=== PATIENT | male | born 1955 | race Caucasian/White ===

== ENCOUNTER 2022-04-26 07:37 | Outpatient (RCR) | payer MEDICARE, BC, SELFPAY ==
[2021-12-12] MEDS: 0.9 % SODIUM CHLORIDE 1000 ml 1,000 ML 500 ML IV (13:00)
[2021-12-12 13:48] VITALS: BP 118/75; PULSE 99; RESP 16; TEMP 35.8; O2SAT 96
[2021-12-13 11:05] VITALS: BP 113/73; PULSE 90; RESP 16; TEMP 36.2; O2SAT 93
[2021-12-13] MEDS: 0.9 % SODIUM CHLORIDE 1000 ml 1,000 ML 500 ML IV (11:34)
[2021-12-14 10:15] VITALS: BP 110/75; PULSE 82; RESP 16; TEMP 36; O2SAT 96
[2021-12-14] MEDS: 0.9 % SODIUM CHLORIDE 1000 ml 1,000 ML 500 ML IV (10:18)
[2021-12-18 11:02] VITALS: BP 105/72; PULSE 99; RESP 16; TEMP 36.4; O2SAT 94
[2021-12-18] MEDS: 0.9 % SODIUM CHLORIDE 1000 ml 1,000 ML IV (11:48)
[2021-12-18] MEDS: SODIUM CHLORIDE 0.9 % (FLUSH) 10 ML SYRINGE IVF (11:48)
[2021-12-20 10:43] VITALS: BP 96/68; PULSE 109; RESP 16; TEMP 36.4; O2SAT 94
[2021-12-20] MEDS: 0.9 % SODIUM CHLORIDE 1000 ml 1,000 ML IV (11:22)
[2021-12-20 12:25] VITALS: BP 128/78; PULSE 89; RESP 18; TEMP 36.7; O2SAT 98
[2021-12-22] MEDS: 0.9 % SODIUM CHLORIDE 1000 ml 1,000 ML IV (11:28)
[2021-12-22] MEDS: SODIUM CHLORIDE 0.9 % (FLUSH) 10 ML SYRINGE IVF (11:28)
[2021-12-22 12:00] VITALS: BP 101/70; PULSE 95; RESP 16; TEMP 36.8; O2SAT 95
[2021-12-24 12:00] VITALS: BP 107/67; PULSE 104; RESP 18; TEMP 36.6; O2SAT 97
[2021-12-24 13:10] VITALS: BP 129/81; PULSE 86; RESP 18; TEMP 36.8; O2SAT 98
--- NOTE | 2021-12-24 13:38 | PC.NURSE ---
shift note: pt to rm 258 for 1 L ns over an hour per d.o. IV placed in Lt FA #22. 4 attempts. Pt tolerated infusion well. IV dc'd intact and coban applied to assist with clotting site. Pt denies pain at dc. vss stable
[2021-12-29 15:25] VITALS: BP 114/71; PULSE 112; RESP 20; TEMP 35.8; O2SAT 96
[2021-12-29] MEDS: 0.9 % SODIUM CHLORIDE 1000 ml 1,000 ML IV (15:30)
[2021-12-29] MEDS: SODIUM CHLORIDE 0.9 % (FLUSH) 10 ML SYRINGE IVF (16:11)
[2022-01-01] VITALS (12 sets, daily range): BP systolic 74–121; BP diastolic 50–77; PULSE 83–111; RESP 16–20; TEMP 36.9; O2SAT 92–98
--- NOTE | 2022-01-01 16:10 | ONC.NURNOTE ---
SEE frequent vitals. Net Applications Developer placed IV without difficult at 1124. 2 minutes later, pt c/o lightheadedness, pt diaphoretic. BP 70's systollic. Pt placed supine, IV bolus started, Christin Woodson APRN notified and at bedside. Pt did get nauseated and vomited approx 200cc. Pt felt better after having an emesis. Within minutes BP improved, see Vitals. Pt given a total of 2 L NC, ambulated in hallway without difficulty and discharged to home. IV left in place for IVF tomorrow am.
[2022-01-02 08:51] VITALS: BP 115/76; PULSE 105; RESP 16; TEMP 35.9; O2SAT 94
[2022-01-02 08:52] VITALS: BP 113/77; PULSE 101
[2022-01-02 08:53] VITALS: BP 133/66; PULSE 112
[2022-01-02] MEDS: 0.9 % SODIUM CHLORIDE 1000 ml 1,000 ML IV (08:55)
--- NOTE | 2022-01-03 16:30 | ONC.NURNOTE ---
Patient called about orders for IV fluids. No orders were sent to us. Patient stated they were supposed to come from [facility] in [place]. Evidence Custodian called the clinic and they stated that the orders were sent to [facility] instead of here. Requested that orders be faxed to us and also emailed to STEFANI Waller. Patient scheduled for 01-04-22. Per trina, Dr. Nicholas's team will be reaching out to him to set up a neurology consult to address the orthostasis he is experiencing. Patient called with this plan and will plan to be here tomorrow and will wait to hear from [place] on a neurology consult.
[2022-01-04 13:01] VITALS: BP 136/78; PULSE 98; RESP 16; TEMP 35.9; O2SAT 97
[2022-01-04] MEDS: 0.9 % SODIUM CHLORIDE 1000 ml 1,000 ML IV (13:11)
[2022-01-04] MEDS: SODIUM CHLORIDE 0.9 % (FLUSH) 10 ML SYRINGE IVF (14:34)
[2022-01-05 09:36] VITALS: BP 125/76; PULSE 109; RESP 16; TEMP 36.2; O2SAT 95
[2022-01-05] MEDS: 0.9 % SODIUM CHLORIDE 1000 ml 1,000 ML 800 ML IV (09:46)
[2022-01-05 11:03] VITALS: BP 121/82; BP 136/84; PULSE 92
--- NOTE | 2022-03-30 15:48 | URNOTE ---
Request received for authorization for Leuprolide ([id number]). Prior authorization is not required as services are based on medical necessity and follow Medicare guidelines.
--- NOTE | 2022-04-02 08:22 | ONC.NURNOTE ---
Dx: Prostate cancer
[2022-04-03 14:50] VITALS: BP 145/82; PULSE 68; RESP 16; TEMP 36.2; O2SAT 95
[2022-04-03] MEDS: LEUPROLIDE ACETATE 22.5 MG (SQ) SYRINGE SUBCUT (15:04)
[2022-04-26 10:39] LABS: Eosinophils Percent Auto 3.5 % (0.0-7.0); Hematocrit 39.8 % (37.0-53.0); Hemoglobin* 13.3 gm/dL (13.5-17.5); Immature Granulocytes Pct Auto 0.3 %; Lymphocytes Percent Auto 14.5 % (20-44); Mean Corpuscular HGB Conc 33 gm/dL (32-36); Mean Corpuscular Hemoglobin 35 pg (26-34); Mean Corpuscular Volume 104 fL (80-100); Monocytes Percent Auto 19.5 % (0.0-11.0); Neutrophils Percent Auto 62.2 % (42.0-72.0); Platelet Count* 65 K/uL (140-440); RDW Coefficient of Variation % 13.6 % (11.5-15.5); Red Blood Count 3.82 m/uL (4.30-5.90); White Blood Count* 3.44 K/uL (4.50-11.00)
[2022-04-26 10:54] LABS: Slide Review Reflex No
[2022-04-26 10:55] LABS: INR 2.25 (0.91-1.10)
[2022-04-26 11:13] LABS: Albumin* 4.4 g/dL (3.3-5.0); Chloride* 109 mmol/L (96-114); Potassium* 4.5 mmol/L (3.6-5.1); Sodium* 144 mmol/L (135-149)
[2022-04-26 11:15] LABS: Bilirubin Total* 0.7 mg/dL (0.1-1.5); Creatinine* 1.1 mg/dL (0.5-1.5); Estimated Glomerular Filt Rate 74 ml/min
[2022-04-26 11:16] LABS: Alanine Aminotransferase* 20 U/L (4-50); Alkaline Phosphatase* 57 U/L (40-150); Blood Urea Nitrogen* 20 mg/dL (7-30); Calcium* 9.7 mg/dL (8.4-10.6); Carbon Dioxide* 24 mmol/L (20-32); Glucose* 109 mg/dL (60-115); Total Protein* 6.9 g/dL (6.0-8.3)
[2022-04-26 11:32] LABS: Aspartate Amino Transferase* 29 U/L (12-35)
[2022-04-26 11:47] LABS: PSA Diagnostic* 1.01 ng/mL (0.10-4.00)
--- NOTE | 2022-04-27 09:46 | ONC.NURNOTE ---
INR drawn yesterday per patient request results faxed to [facility] in [place]
--- NOTE | 2022-04-30 09:17 | ONC.NURNOTE ---
Addendum entered by Bryanna Gonzales RN 05/10/22 15:14: Rug Underlay Machine Operator spoke with patient and reviewed need to connect with [facility] for enrollment in a copay assist for high monthly copay discussed plan to do teaching and lab recheck when he returns from [place] next week Addendum entered by Braynna Gonzales RN 05/10/22 14:53: [facility] up with [facility] patient to review options for copay enrollment grants digital message sent via Voxel address Addendum entered by Bryanna Gonzales RN 05/03/22 13:29: PA info unavailable Copay [id number] [facility] to look into copay assist and will be contacting patient Updated this office contact info with [facility] program writer will call and update patient Addendum entered by Bryanna Gonzales RN 05/03/22 13:22: Phone call to [facility]- RX has been transferred to [facility]- Grace contacted Dr Lopez to complete the transaction Original Note: Xtandi new RX electronically submitted to [facility] 04/25/22 program writer phoned in follow up today RX in process with business office- PA status unknown at this time patient received written info and instruction about copay's and copay support, free drug program
--- NOTE | 2022-05-01 09:57 | ONC.NURNOTE ---
Follow up call to Darío: [place] still processing script- no info yet on PA or copay amounts Revisited plan to enroll in [employer] Patient Assist if high dollar copay. patient has the forms to complete and was instructed to scan and email to this com writer. Will need to recheck platelets prior to Xtandi start- labs reviewed by Dr Lopez patient states that his platelets have been running low since he received the Counce 223 next appts needed -recheck lab -monthly lab -provider appts -teaching appt (to do with next lab draw) patient in [facility] until after the new year
--- NOTE | 2022-05-16 11:00 | ONC.NURNOTE ---
PA info for Xtandi 05/13/22-05/12/23 [facility] [phone] PA # [id number]
--- NOTE | 2022-05-16 11:03 | ONC.NURNOTE ---
Addendum entered by Bryanna Gonzales RN 05/16/22 11:44: Current status of copay: since there is no keila programs for prostate cancer The pharmacy at [facility] has referred Darío to the [facility] at [facility] Darío has requested a referral at [facility] as well Next Steps: (per [facility] agent) -RCC with contact patient with in 72 hours to do a prescreening asking for his income -if it looks like he will qualify for [facility] financial hardship program then Darío will complete an application and will need to provide income documentation -another 72 hrs to process application If Darío does not qualify for [facility] financial hardship program then an application for [employer] will submitted Patient was offered a teaching appt, but he prefers to wait until after Xtandi is ready to be shipped Darío also has seen Dr Nicholas about hip and back pain and is to be scheduled for upcoming MRI at [place] for evaluation Original Note: No available funds for prostate cancer through keila based funds
--- NOTE | 2022-06-01 15:47 | ONC.NURNOTE ---
Per [facility] has mailed Darío a one page financial form to complete for consideration of enrollment in [facility]'s financial hardship program to cover high copays mailed on 05/17/22 to patient Building Services Engineer also spoke with Darío and he has not received this form [facility] phone# provided for Darío to call for RCC and see if he can provide information over the phone plan to reconnect again next week
== END 2022-06-10 23:59 | disposition home or self-care (01) ==
LOC: CCIC 07:37
PROVIDERS: PCP Physician Assistant; Referring Provider Physician Assistant; Visit Provider Internal Medicine Medical Oncology
DX: C61 Malignant neoplasm of prostate (principal); C79.51 Secondary malignant neoplasm of bone; Z79.01 Long term (current) use of anticoagulants
CPT/HCPCS: 36415; 80053; 84153; 85025; 85610; 96360; 96361; 96365; 96401; 99204; 99212; 99214; J7030; J9217

== ENCOUNTER 2022-12-19 08:30 | Outpatient (RCR) | payer MEDICARE, BC, SELFPAY ==
[2022-06-27 10:40] VITALS: BP 143/89; PULSE 100; RESP 16; TEMP 36.2; O2SAT 93
[2022-06-27] MEDS: LEUPROLIDE ACETATE 22.5 MG (SQ) SYRINGE SUBCUT (10:51)
[2022-08-20 09:05] LABS: Basophils Percent Auto 0.5 % (0.0-3.0); Eosinophils Percent Auto 3.7 % (0.0-7.0); Hematocrit 40.4 % (37.0-53.0); Hemoglobin* 13.5 gm/dL (13.5-17.5); Immature Granulocytes Pct Auto 0.2 %; Mean Corpuscular HGB Conc 33 gm/dL (32-36); Mean Corpuscular Hemoglobin 35 pg (26-34); Mean Corpuscular Volume 104 fL (80-100); Monocytes Percent Auto 14.4 % (0.0-11.0); Neutrophils Percent Auto 56.2 % (42.0-72.0); Platelet Count* 112 K/uL (140-440); RDW Coefficient of Variation % 13.8 % (11.5-15.5); Red Blood Count 3.87 m/uL (4.30-5.90); White Blood Count* 4.32 K/uL (4.50-11.00)
[2022-08-20 09:06] LABS: Slide Review Reflex No
[2022-08-20 09:17] LABS: Albumin* 4.4 g/dL (3.3-5.0); Chloride* 108 mmol/L (96-114)
[2022-08-20 09:18] LABS: Potassium* 3.2 mmol/L (3.6-5.1); Sodium* 141 mmol/L (135-149)
[2022-08-20 09:20] LABS: Alanine Aminotransferase* 22 U/L (4-50); Alkaline Phosphatase* 84 U/L (40-150); Aspartate Amino Transferase* 30 U/L (12-35); Bilirubin Total* 0.9 mg/dL (0.1-1.5); Blood Urea Nitrogen* 14 mg/dL (7-30); Carbon Dioxide* 29 mmol/L (20-32); Creatinine* 0.8 mg/dL (0.5-1.5); Est. Creatinine Clearance* 79.76; Estimated Glomerular Filt Rate 98 ml/min; Glucose* 111 mg/dL (60-115); Total Protein* 7.4 g/dL (6.0-8.3)
[2022-08-20 09:21] LABS: Calcium* 9.2 mg/dL (8.4-10.6)
[2022-08-20 09:55] LABS: PSA Diagnostic* 4.07 ng/mL (0.10-4.00)
--- NOTE | 2022-08-30 10:49 | ONC.NURNOTE ---
Addendum entered by Bryanna Gonzales RN 09/06/22 14:34: [facility] missing 2nd page of 1040- refaxed in today poem writer called and confirmed that it was received decision should be made by Saturday for enrollment Addendum entered by Bryanna Gonzales RN 09/03/22 09:14: Faxed 1040 and signed statement of household size to [facility] Original Note: Application for [facility] submitted on 08/29/22 - a 2nd time fax
--- NOTE | 2022-09-10 14:02 | ONC.NURNOTE ---
Xtandi prescription cost coverage Per [employer], Darío will need additional financial evaluation for Medicare's Low Income Subsidy/Medicare Extra Help program services assistant called and Darío was informed of this and that [employer] will be calling to get additional information enrollment pending on if Darío qualifies for Medicare LIS then he will need to enroll in the LIS program and will get his medication for under $10 through the Medicare LIS and not through [employer] if he does not qualify for LIS then he will be enrolled in the [employer]
--- NOTE | 2022-09-18 14:42 | ONC.NURNOTE ---
Darío has been enrolled in [employer] with RX to be filled through [facility] this was emailed to Darío per his request [employer] ph [phone] fax [phone] [facility] ph [phone]
[2022-09-21] MEDS: LEUPROLIDE ACETATE 22.5 MG (SQ) SYRINGE SUBCUT (14:32)
[2022-09-21 15:53] VITALS: BP 128/83; PULSE 98; RESP 18; TEMP 36.3; O2SAT 94
[2022-10-17 14:31] LABS: Basophils Absolute Auto 0.01 K/uL (0.00-0.30); Basophils Percent Auto 0.2 % (0.0-3.0); Eosinophils Absolute Auto 0.12 K/uL (0.00-0.50); Eosinophils Percent Auto 2.2 % (0.0-7.0); Hematocrit 43.7 % (37.0-53.0); Hemoglobin* 14.6 gm/dL (13.5-17.5); Immature Granulocytes Abs Auto 0.01 K/uL (0.00-0.30); Immature Granulocytes Pct Auto 0.2 %; Lymphocytes Absolute Auto 1.56 K/uL (0.90-2.90); Lymphocytes Percent Auto 28.1 % (20-44); Mean Corpuscular HGB Conc 33 gm/dL (32-36); Mean Corpuscular Hemoglobin 35 pg (26-34); Mean Corpuscular Volume 105 fL (80-100); Monocytes Percent Auto 14.2 % (0.0-11.0); Neutrophils Absolute Auto 3.06 K/uL (1.7-7.0); Neutrophils Percent Auto 55.1 % (42.0-72.0); Platelet Count* 146 K/uL (140-440); Red Blood Count 4.15 m/uL (4.30-5.90); Slide Review Reflex No; White Blood Count* 5.55 K/uL (4.50-11.00)
[2022-10-17 14:56] LABS: Blood Urea Nitrogen* 14 mg/dL (7-30); Calcium* 9.6 mg/dL (8.4-10.6); Carbon Dioxide* 18 mmol/L (20-32); Chloride* 106 mmol/L (96-114); Creatinine* 0.9 mg/dL (0.5-1.5); Est. Creatinine Clearance* 79.76; Estimated Glomerular Filt Rate 94 ml/min; Glucose* 89 mg/dL (60-115); Potassium* 4.2 mmol/L (3.6-5.1); Sodium* 144 mmol/L (135-149); Total Protein* 7.8 g/dL (6.0-8.3)
[2022-10-17 14:57] LABS: Alanine Aminotransferase* 21 U/L (4-50); Albumin* 4.5 g/dL (3.3-5.0); Alkaline Phosphatase* 71 U/L (40-150); Aspartate Amino Transferase* 30 U/L (12-35); Bilirubin Total* 0.9 mg/dL (0.1-1.5)
[2022-10-17 17:24] LABS: PSA Diagnostic* 4.32 ng/mL (0.10-4.00)
--- NOTE | 2022-10-19 11:18 | ONC.NURNOTE ---
Addendum entered by Bryanna Gonzales RN 10/22/22 13:04: dose and PSA reviewed by Dr Poe- no dose change indicated at this time to continue 80 mg QD until follow up appt in 2 weeks Original Note: Lab reviewed and called to Darío reports ongoing fatigue and taking pain medication as prescribed dose discussed- patient is taking 2 X 40mg tabs which Dr Poe had started at reduced dose due to baseline fatigue
[2022-11-15] MEDS: 0.9 % SODIUM CHLORIDE 1000 ml 1,000 ML IV (14:15)
--- NOTE | 2022-11-26 14:50 | URNOTE ---
Request received for authorization for Eligard ([id number]), Docetaxel (J9171). Prior authorization is not required as services are based on medical necessity and follow Medicare guidelines.
--- NOTE | 2022-11-26 15:38 | ONC.NURNOTE ---
Patient's PA came back to cover the taxotere. Patient is not scheduled, so he was called and he states that he does want chemotherapy. He questions how he is to stop his xtandi with a start date of 12/06/2022 of the taxotere. This will be following an appointment that was scheduled with Dr. Poe. Clinic nurse to discuss with Dr. Poe tomorrow, and have Bryanna call patient back with instruction and scheduling of teaching.
[2022-12-04 09:29] LABS: Basophils Percent Auto 0.3 % (0.0-3.0); Eosinophils Percent Auto 3.9 % (0.0-7.0); Hemoglobin* 13.5 gm/dL (13.5-17.5); Immature Granulocytes Pct Auto 0.3 %; Mean Corpuscular HGB Conc 33 gm/dL (32-36); Mean Corpuscular Hemoglobin 35 pg (26-34); Mean Corpuscular Volume 107 fL (80-100); Monocytes Percent Auto 13.7 % (0.0-11.0); Neutrophils Percent Auto 46.8 % (42.0-72.0); Platelet Count* 133 K/uL (140-440); RDW Coefficient of Variation % 13.4 % (11.5-15.5); Red Blood Count 3.85 m/uL (4.30-5.90); White Blood Count* 3.57 K/uL (4.50-11.00)
[2022-12-04 09:30] LABS: Slide Review Reflex No
[2022-12-04 09:38] LABS: Albumin* 4.1 g/dL (3.3-5.0); Chloride* 105 mmol/L (96-114); Sodium* 143 mmol/L (135-149)
[2022-12-04 09:40] LABS: Est. Creatinine Clearance* 72.66; Estimated Glomerular Filt Rate 83 ml/min
[2022-12-04 09:41] LABS: Alanine Aminotransferase* 25 U/L (4-50); Alkaline Phosphatase* 68 U/L (40-150); Aspartate Amino Transferase* 38 U/L (12-35); Bilirubin Total* 1.1 mg/dL (0.1-1.5); Blood Urea Nitrogen* 13 mg/dL (7-30); Calcium* 9.4 mg/dL (8.4-10.6); Carbon Dioxide* 29 mmol/L (20-32); Glucose* 161 mg/dL (60-115); Total Protein* 7.2 g/dL (6.0-8.3)
[2022-12-04] MEDS: LORazepam 2 MG/ML inj 1 MG IVP (11:01)
[2022-12-04] MEDS: dexAMETHasone 10 MG in 0.9 % SODIUM CHLORIDE 100 ml 100 ML 404 MG IVPB (11:26)
[2022-12-04] MEDS: ONDANSETRON 2 MG/ML inj 8 MG IVP (11:26)
--- NOTE | 2022-12-04 14:28 | ONC.NURNOTE ---
New Treatment start teaching Reviewed possible side effects of taxotere, self care at home, calling with concerns, ER if fever over 100.5, self care at home, discussed treatment schedule, next appts infusion nurse to review home antiemetics reviewed contents of the new treatment binder questions addressed consents and CHRISTINE signed
--- NOTE | 2022-12-04 14:39 | ONC.NURNOTE ---
PSDS = 1 with no listed problems patient showed signs of anxiety upon arrival to clinic today, he was pacing and verbally expressed anxiety about diagnosis and chemotherapy start after provider visit today, he was given lorazepam IV in addition to antiemetics pre chemotherapy patient reports significant improved mood after lorazepam and completed PSDS senior writer offered SS visit as support for the patient-
--- NOTE | 2022-12-06 16:02 | PC.NURSE ---
Called pt today to check in after his first Taxotere chemotherapy on Saturday. Darío states that he is tired but overall doing well. He has no questions or concerns.
--- NOTE | 2022-12-07 09:33 | ONC.NURNOTE ---
Addendum entered and electronically signed by Christin Ennis APRN 12/17/22 21:05: Sent additional triage information to [facility] for outpatient palliative care [facility]CR. Addendum entered by Grisel Yu RN 12/12/22 15:08: Pt's Barbara called stating they had not heard from Palliative care yet. Hr Administrative Assistant did call and spoke to [facility] in [place]. Palliative care referral is currently in the triage status. Updated pt. Original Note: Patient's called office stating that palliative care consult was discussed at Saturday's appointment. Looking into the [facility] system, nothing was found. Hr Administrative Assistant emailed provider asking her to put consult in, patient notified. They will contact us mid next week if they still have not heard from [facility] scheduling.
--- NOTE | 2022-12-14 10:31 | PC.NURSE ---
Late entry: Pt's , Barbara, called [facility] this morning around 0830 to report that Darío had developed a significant rash. RN instructed Barbara to take Darío to his PCP or Urgent Care to be evaluated as no providers are present at [facility] today. Barbara verbalized understanding.
--- NOTE | 2022-12-17 12:20 | PC.NURSE ---
Boarder Machine called patient on 12/17 at 1130 to follow up regarding reported rash/adverse reaction from Taxotere. Boarder Machine spoke with both patient and spouse, Barbara. Pt verbalized he was seen at [facility] for rash and was given Triamciolone cream 0.5% (8 tubes) and then instructed to take Benadryl which he is reportedly taking 2-3x/day. Rash is reported to be on bilateral legs and arms primarily with some on back and torso. Rash is reported to appear the same however symptoms are improving. Christin updated on phone call. Pt is to be seen in infusion center on 12/19 and Rash will be assessed then.
[2022-12-19 08:40] VITALS: BP 111/83; PULSE 89; RESP 16; TEMP 35.7; O2SAT 90
[2022-12-19 08:45] VITALS: RESP 14; O2SAT 94
[2022-12-19] MEDS: LEUPROLIDE ACETATE 22.5 MG (SQ) SYRINGE SUBCUT (09:29)
[2022-12-19 09:30] VITALS: BMI 31.7
--- NOTE | 2022-12-19 09:57 | ONC.NURNOTE ---
alert and oriented. calm stated 7 days after receiving Taxotere Pt. developed a rash on his BLE and a bit on his back. Denies any airway symptoms. His rash is almost gone. small amt on his wally. ankles. no open areas. Pt also states took Compazine for the first three days after his Taxotere treatment and hasnt needed or used since. He states was seen and given Benadryl and cortisone cream with relief. LS clear, heart reg. sats 94 RA.
== END 2022-12-24 23:59 | disposition home or self-care (01) ==
LOC: CCIC 08:30
PROVIDERS: Clinical Nurse Specialist; PCP Physician Assistant; Referring Provider Physician Assistant; Visit Provider Internal Medicine Hematology & Oncology
DX: C61 Malignant neoplasm of prostate (principal); C79.51 Secondary malignant neoplasm of bone; M81.0 Age-related osteoporosis without current pathological fracture; F41.9 Anxiety disorder, unspecified; Z92.3 Personal history of irradiation; K59.00 Constipation, unspecified; T45.1X5A Adverse effect of antineoplastic and immunosuppressive drugs, initial encounter
CPT/HCPCS: 36415; 80053; 84153; 85025; 96360; 96376; 96401; 96413; 97802; 99212; 99214; 99215; J1100; J2060; J2405; J7030; J9171; J9217

== ENCOUNTER 2023-04-10 13:30 | Outpatient (RCR) | payer MEDICARE, BC, SELFPAY ==
[2022-12-25 09:13] VITALS: BP 124/83; PULSE 85; RESP 18; TEMP 36.4; O2SAT 95
[2022-12-25 09:33] LABS: Basophils Percent Auto 0.3 % (0.0-3.0); Hematocrit 38.3 % (37.0-53.0); Hemoglobin* 12.4 gm/dL (13.5-17.5); Lymphocytes Percent Auto 28.2 % (20-44); Mean Corpuscular HGB Conc 32 gm/dL (32-36); Mean Corpuscular Hemoglobin 34 pg (26-34); Mean Corpuscular Volume 106 fL (80-100); Monocytes Percent Auto 17.7 % (0.0-11.0); Neutrophils Percent Auto 53.8 % (42.0-72.0); Platelet Count* 139 K/uL (140-440); RDW Coefficient of Variation % 14.1 % (11.5-15.5); Red Blood Count 3.63 m/uL (4.30-5.90); White Blood Count* 3.44 K/uL (4.50-11.00)
[2022-12-25 09:34] LABS: Slide Review Reflex No
[2022-12-25 10:04] LABS: Albumin* 3.9 g/dL (3.3-5.0); Chloride* 106 mmol/L (96-114); Potassium* 4.6 mmol/L (3.6-5.1); Sodium* 141 mmol/L (135-149)
--- NOTE | 2022-12-25 10:04 | URNOTE ---
Received request for prior auth for Lilibeth ([id number]). Pt has medicare primary. Prior auth is not required as services are based on medical necessity and follow medicare guidelines
[2022-12-25 10:06] LABS: Aspartate Amino Transferase* 39 U/L (12-35); Carbon Dioxide* 31 mmol/L (20-32); Est. Creatinine Clearance* 69.35; Estimated Glomerular Filt Rate 82 ml/min
[2022-12-25 10:07] LABS: Alanine Aminotransferase* 25 U/L (4-50); Alkaline Phosphatase* 65 U/L (40-150); Blood Urea Nitrogen* 13 mg/dL (7-30); Calcium* 9.2 mg/dL (8.4-10.6); Glucose* 100 mg/dL (60-115)
[2022-12-25 11:20] LABS: PSA Diagnostic* 3.08 ng/mL (0.10-4.00)
[2022-12-25] MEDS: ONDANSETRON 2 MG/ML inj 8 MG IVP (11:48)
[2022-12-25] MEDS: dexAMETHasone 10 MG in 0.9 % SODIUM CHLORIDE 100 ml 100 ML 404 MG IVPB (11:49)
[2022-12-25] MEDS: diphenhydrAMINE 25 MG, FAMOTIDINE 20 MG in 0.9 % SODIUM CHLORIDE 100 ml 100 ML 402 MG IVPB (12:23)
[2022-12-25] MEDS: LORazepam 2 MG/ML inj 0.5 MG IVP (12:23)
--- NOTE | 2022-12-25 13:08 | URNOTE ---
REceived request for Aubrey ([id number]). Pt has medicare primary. Prior authorization is not needed as services are based on medical necessity and follow medicare guidelines.
[2022-12-26 14:12] VITALS: PULSE 86; RESP 18; TEMP 36.8; O2SAT 90
[2022-12-26 14:25] VITALS: BP 152/76
[2022-12-26] MEDS: PEGFILGRASTIM-JMDB 6 MG/0.6 ML SYRINGE SUBCUT (14:34)
--- NOTE | 2023-01-01 10:33 | ONC.NURNOTE ---
Late Entry: Spoke to pt 12/31/22 at 1600, pt states rash has returned after last chemo. Rash not as significant as previous rash. Pt states rash appeared on bilateral calves, more on the right calf. Slight rash on bilateral arms. Pt denies any itching or pain associated with rash. Pt started applying steroid cream to rash and is taking oral benadryl per instructions. Pt also states he had multiple loose stools on Saturday, did not take any imodium. No loose stools on Saturday. Pt instructed on how to use imodium is diarrhea returns. Pt denies nausea and vomiting and feels he is staying hydrated. Tree Fruit And Nut Crops Farmer discussed symptoms with Christin Woodson APRN, pt instructed to call if rash or diarrhea gets worse.
--- NOTE | 2023-01-10 14:37 | ONC.NURNOTE ---
Pt called with concerns that he has a red soo on his right hand, pt noticed it a couple days after his last taxotere. The soo has not changed since saturday, denies fever, pain, slightly warm. Discussed with Christin Woodson APRN, pt instructed to call if he has any signs of infection or if the redness continues to increase in size. Pt verbalized understanding of plan of care.
[2023-01-15 09:43] LABS: Basophils Absolute Auto 0.02 K/uL (0.00-0.30); Basophils Percent Auto 0.4 % (0.0-3.0); Eosinophils Absolute Auto 0.01 K/uL (0.00-0.50); Eosinophils Percent Auto 0.2 % (0.0-7.0); Hematocrit 39.2 % (37.0-53.0); Hemoglobin* 12.7 gm/dL (13.5-17.5); Immature Granulocytes Abs Auto 0.01 K/uL (0.00-0.30); Immature Granulocytes Pct Auto 0.2 %; Lymphocytes Percent Auto 19.8 % (20-44); Mean Corpuscular HGB Conc 32 gm/dL (32-36); Mean Corpuscular Hemoglobin 35 pg (26-34); Mean Corpuscular Volume 107 fL (80-100); Monocytes Percent Auto 13.6 % (0.0-11.0); Neutrophils Absolute Auto 3.19 K/uL (1.7-7.0); Neutrophils Percent Auto 65.8 % (42.0-72.0); Platelet Count* 131 K/uL (140-440); RDW Coefficient of Variation % 15.1 % (11.5-15.5); Red Blood Count 3.67 m/uL (4.30-5.90); White Blood Count* 4.85 K/uL (4.50-11.00)
[2023-01-15 09:46] LABS: Slide Review Reflex No
[2023-01-15 10:11] LABS: Albumin* 3.9 g/dL (3.3-5.0)
[2023-01-15 10:12] LABS: Chloride* 105 mmol/L (96-114); Potassium* 3.6 mmol/L (3.6-5.1); Sodium* 142 mmol/L (135-149)
[2023-01-15 10:14] LABS: Anion Gap 8 mEq/L (7-15); Aspartate Amino Transferase* 36 U/L (12-35); Bilirubin Total* 0.9 mg/dL (0.1-1.5); Carbon Dioxide* 29 mmol/L (20-32); Creatinine* 0.9 mg/dL (0.5-1.5); Est. Creatinine Clearance* 69.35; Estimated Glomerular Filt Rate 94 ml/min
[2023-01-15 10:15] LABS: Alanine Aminotransferase* 23 U/L (4-50); Alkaline Phosphatase* 64 U/L (40-150); Blood Urea Nitrogen* 11 mg/dL (7-30); Calcium* 9.4 mg/dL (8.4-10.6); Glucose* 123 mg/dL (60-115); Total Protein* 6.9 g/dL (6.0-8.3)
[2023-01-15] MEDS: dexAMETHasone 10 MG in 0.9 % SODIUM CHLORIDE 100 ml 100 ML 404 MG IVPB (11:50)
[2023-01-15] MEDS: ONDANSETRON 2 MG/ML inj 8 MG IVP (12:09)
[2023-01-15] MEDS: diphenhydrAMINE 25 MG, FAMOTIDINE 20 MG in 0.9 % SODIUM CHLORIDE 100 ml 100 ML 402 MG IVPB (12:09)
[2023-01-16 13:36] VITALS: BP 106/69; PULSE 53; RESP 16; TEMP 36.3; O2SAT 100
[2023-01-16] MEDS: PEGFILGRASTIM-JMDB 6 MG/0.6 ML SYRINGE SUBCUT (13:45)
[2023-02-06 09:54] LABS: Basophils Percent Auto 0.8 % (0.0-3.0); Eosinophils Percent Auto 0.3 % (0.0-7.0); Hematocrit 37.2 % (37.0-53.0); Hemoglobin* 11.9 gm/dL (13.5-17.5); Immature Granulocytes Pct Auto 0.3 %; Lymphocytes Percent Auto 28.1 % (20-44); Mean Corpuscular HGB Conc 32 gm/dL (32-36); Mean Corpuscular Hemoglobin 35 pg (26-34); Mean Corpuscular Volume 109 fL (80-100); Monocytes Percent Auto 13.3 % (0.0-11.0); Neutrophils Percent Auto 57.2 % (42.0-72.0); Platelet Count* 123 K/uL (140-440); RDW Coefficient of Variation % 15.9 % (11.5-15.5); Red Blood Count 3.43 m/uL (4.30-5.90); White Blood Count* 3.92 K/uL (4.50-11.00)
[2023-02-06 09:57] LABS: Slide Review Reflex No
[2023-02-06 10:17] LABS: Albumin* 3.8 g/dL (3.3-5.0); Chloride* 107 mmol/L (96-114); Potassium* 3.5 mmol/L (3.6-5.1); Sodium* 142 mmol/L (135-149)
[2023-02-06 10:20] LABS: Alanine Aminotransferase* 24 U/L (4-50); Alkaline Phosphatase* 61 U/L (40-150); Anion Gap 8 mEq/L (7-15); Aspartate Amino Transferase* 34 U/L (12-35); Bilirubin Total* 0.8 mg/dL (0.1-1.5); Blood Urea Nitrogen* 9 mg/dL (7-30); Carbon Dioxide* 27 mmol/L (20-32); Creatinine* 0.8 mg/dL (0.5-1.5); Est. Creatinine Clearance* 69.35; Estimated Glomerular Filt Rate 97 ml/min; Total Protein* 6.6 g/dL (6.0-8.3)
[2023-02-06 10:21] LABS: Calcium* 9.2 mg/dL (8.4-10.6); Glucose* 143 mg/dL (60-115)
[2023-02-06] MEDS: 0.9 % SODIUM CHLORIDE 1000 ml 1,000 ML IV (11:33)
[2023-02-06] MEDS: dexAMETHasone 10 MG in 0.9 % SODIUM CHLORIDE 100 ml 100 ML 404 MG IVPB (12:41)
[2023-02-06] MEDS: ONDANSETRON 2 MG/ML inj 8 MG IVP (12:41)
[2023-02-06 12:47] LABS: PSA Diagnostic* 1.78 ng/mL (0.10-4.00)
[2023-02-06] MEDS: FAMOTIDINE 10 MG/ML inj 20 MG IVP (13:00)
[2023-02-06] MEDS: diphenhydrAMINE 25 MG in 0.9 % SODIUM CHLORIDE 100 ml 100 ML 402 MG IVPB (13:00)
[2023-02-07 14:14] VITALS: BP 117/75; PULSE 72; RESP 16; TEMP 35.7; O2SAT 94
[2023-02-07] MEDS: PEGFILGRASTIM-JMDB 6 MG/0.6 ML SYRINGE SUBCUT (14:42)
[2023-02-13 15:00] VITALS: BP 107/72; PULSE 94; RESP 18; TEMP 36.8; O2SAT 92
[2023-02-20 14:10] VITALS: BP 119/67; PULSE 97; RESP 20; TEMP 36.6; O2SAT 92
[2023-02-20] MEDS: 0.9 % SODIUM CHLORIDE 1000 ml 1,000 ML IV (14:35)
[2023-02-20] MEDS: SODIUM CHLORIDE 0.9 % (FLUSH) 10 ML SYRINGE IVF (14:35)
--- NOTE | 2023-02-20 14:40 | ONC.NURNOTE ---
Patient here for a PICC line dressing change. Patient stated he thought he would need fluids. Patient stated he is feeling more dizzy at home. Takes his time with ambulation. Not taking in adequate fluids. Ran this passed STEFANI Waller. Verbal order for one time 1L Normal Saline bolus over 1 hour. Will re-evaluate patient next week.
--- NOTE | 2023-02-25 12:34 | ONC.NURNOTE ---
Xtandi support solutions re enrollment letter received program contacted that patient no longer taking Xtandi # [phone]
[2023-02-26 10:14] LABS: Basophils Percent Auto 0.5 % (0.0-3.0); Eosinophils Percent Auto 0.5 % (0.0-7.0); Hematocrit 36.5 % (37.0-53.0); Hemoglobin* 11.5 gm/dL (13.5-17.5); Lymphocytes Percent Auto 21.5 % (20-44); Mean Corpuscular HGB Conc 32 gm/dL (32-36); Mean Corpuscular Hemoglobin 35 pg (26-34); Mean Corpuscular Volume 110 fL (80-100); Monocytes Percent Auto 13.2 % (0.0-11.0); Neutrophils Percent Auto 64.3 % (42.0-72.0); Platelet Count* 104 K/uL (140-440); RDW Coefficient of Variation % 16.7 % (11.5-15.5); Red Blood Count 3.31 m/uL (4.30-5.90); White Blood Count* 4.23 K/uL (4.50-11.00)
[2023-02-26 10:18] LABS: Slide Review Reflex No
[2023-02-26 10:28] LABS: Albumin* 3.8 g/dL (3.3-5.0); Chloride* 107 mmol/L (96-114); Potassium* 3.6 mmol/L (3.6-5.1); Sodium* 141 mmol/L (135-149)
[2023-02-26 10:31] LABS: Alanine Aminotransferase* 19 U/L (4-50); Alkaline Phosphatase* 67 U/L (40-150); Anion Gap 9 mEq/L (7-15); Aspartate Amino Transferase* 59 U/L (12-35); Bilirubin Total* 0.8 mg/dL (0.1-1.5); Blood Urea Nitrogen* 13 mg/dL (7-30); Carbon Dioxide* 25 mmol/L (20-32); Creatinine* 0.8 mg/dL (0.5-1.5); Est. Creatinine Clearance* 69.35; Estimated Glomerular Filt Rate 97 ml/min; Glucose* 144 mg/dL (60-115); Total Protein* 6.7 g/dL (6.0-8.3)
[2023-02-26 10:32] LABS: Calcium* 8.9 mg/dL (8.4-10.6)
[2023-02-26] MEDS: dexAMETHasone 10 MG in 0.9 % SODIUM CHLORIDE 100 ml 100 ML 404 MG IVPB (11:46)
[2023-02-26] MEDS: ONDANSETRON 2 MG/ML inj 8 MG IVP (11:46)
[2023-02-26] MEDS: diphenhydrAMINE 25 MG, FAMOTIDINE 20 MG in 0.9 % SODIUM CHLORIDE 100 ml 100 ML 402 MG IVPB (12:17)
[2023-02-26] MEDS: SODIUM CHLORIDE 0.9 % (FLUSH) 10 ML SYRINGE IVF (12:18)
[2023-02-26] MEDS: 0.9 % SODIUM CHLORIDE 250 ml IV (14:39)
[2023-02-27 11:20] VITALS: BP 106/70; PULSE 87; RESP 16; TEMP 35.9; O2SAT 92
[2023-02-27] MEDS: PEGFILGRASTIM-JMDB 6 MG/0.6 ML SYRINGE SUBCUT (11:30)
[2023-02-27] MEDS: SODIUM CHLORIDE 0.9 % (FLUSH) 10 ML SYRINGE IVF (11:35)
--- NOTE | 2023-03-04 09:41 | ONC.NURNOTE ---
Addendum entered by Trish Bowling RN 03/05/23 10:00: Patient's called and notes that patient is still in the hospital and will be through at least tomorrow. His appointment will be cancelled for tomorrow and patient and spouse will update us when patient is discharged. Original Note: called: Darío is an intpatient at [facility] after falling at home he had been having some loose stools got up the the bathroom unassisted, experienced some dizziness and fell called 911- because she was unable to help him up he is receiving IV hydration and being observed
[2023-03-12 10:26] VITALS: BP 92/61; PULSE 96; RESP 16; TEMP 35.6; O2SAT 92
[2023-03-12] MEDS: ALTEPLASE 2 MG INJ IVF (10:51)
[2023-03-12 10:56] LABS: Basophils Absolute Auto 0.04 K/uL (0.00-0.30); Basophils Percent Auto 0.6 % (0.0-3.0); Eosinophils Absolute Auto 0.03 K/uL (0.00-0.50); Eosinophils Percent Auto 0.4 % (0.0-7.0); Hematocrit 33.8 % (37.0-53.0); Hemoglobin* 10.6 gm/dL (13.5-17.5); Immature Granulocytes Abs Auto 0.04 K/uL (0.00-0.30); Immature Granulocytes Pct Auto 0.6 %; Lymphocytes Percent Auto 14.2 % (20-44); Mean Corpuscular HGB Conc 31 gm/dL (32-36); Mean Corpuscular Hemoglobin 35 pg (26-34); Mean Corpuscular Volume 111 fL (80-100); Monocytes Percent Auto 10.4 % (0.0-11.0); Neutrophils Percent Auto 73.8 % (42.0-72.0); Platelet Count* 87 K/uL (140-440); RDW Coefficient of Variation % 16.4 % (11.5-15.5); Red Blood Count 3.05 m/uL (4.30-5.90); White Blood Count* 6.99 K/uL (4.50-11.00)
[2023-03-12 11:00] VITALS: BP 80/44; PULSE 83
[2023-03-12 11:00] LABS: Slide Review Reflex No
[2023-03-12 11:05] LABS: Albumin* 3.4 g/dL (3.3-5.0); Chloride* 102 mmol/L (96-114)
[2023-03-12 11:06] LABS: Potassium* 3.6 mmol/L (3.6-5.1); Sodium* 140 mmol/L (135-149)
[2023-03-12 11:08] LABS: Alanine Aminotransferase* 17 U/L (4-50); Alkaline Phosphatase* 71 U/L (40-150); Anion Gap 12 mEq/L (7-15); Aspartate Amino Transferase* 50 U/L (12-35); Bilirubin Total* 0.6 mg/dL (0.1-1.5); Blood Urea Nitrogen* 12 mg/dL (7-30); Carbon Dioxide* 26 mmol/L (20-32); Creatinine* 0.9 mg/dL (0.5-1.5); Est. Creatinine Clearance* 69.35; Estimated Glomerular Filt Rate 94 ml/min; Glucose* 141 mg/dL (60-115); Total Protein* 6.1 g/dL (6.0-8.3)
[2023-03-12 11:09] LABS: Calcium* 8.7 mg/dL (8.4-10.6)
[2023-03-12] MEDS: 0.9 % SODIUM CHLORIDE 1000 ml 1,000 ML IV (12:01)
[2023-03-12 13:30] VITALS: BP 113/71; PULSE 73
[2023-03-12] MEDS: SODIUM CHLORIDE 0.9 % (FLUSH) 10 ML SYRINGE IVF (13:46)
[2023-03-19 10:35] VITALS: BP 121/82; PULSE 85; RESP 18; TEMP 35.8; O2SAT 93
[2023-03-19] MEDS: SODIUM CHLORIDE 0.9 % (FLUSH) 10 ML SYRINGE IVF (11:40)
[2023-03-19] MEDS: 0.9 % SODIUM CHLORIDE 1000 ml 1,000 ML IV (11:40)
[2023-03-19 12:53] VITALS: BP 133/83
[2023-03-26 10:08] VITALS: BP 107/70; PULSE 93; RESP 16; TEMP 35.7; O2SAT 90
[2023-03-26 10:36] LABS: Basophils Percent Auto 0.2 % (0.0-3.0); Eosinophils Percent Auto 2.6 % (0.0-7.0); Hemoglobin* 11.3 gm/dL (13.5-17.5); Lymphocytes Percent Auto 20.8 % (20-44); Mean Corpuscular HGB Conc 32 gm/dL (32-36); Mean Corpuscular Hemoglobin 35 pg (26-34); Mean Corpuscular Volume 110 fL (80-100); Monocytes Percent Auto 13.6 % (0.0-11.0); Neutrophils Percent Auto 62.8 % (42.0-72.0); Platelet Count* 111 K/uL (140-440); RDW Coefficient of Variation % 15.7 % (11.5-15.5); Red Blood Count 3.19 m/uL (4.30-5.90); White Blood Count* 4.27 K/uL (4.50-11.00)
[2023-03-26 10:39] LABS: Slide Review Reflex No
[2023-03-26 10:46] LABS: Albumin* 3.6 g/dL (3.3-5.0); Chloride* 108 mmol/L (96-114); Potassium* 3.6 mmol/L (3.6-5.1); Sodium* 141 mmol/L (135-149)
[2023-03-26 10:49] LABS: Alanine Aminotransferase* 17 U/L (4-50); Alkaline Phosphatase* 61 U/L (40-150); Anion Gap 6 mEq/L (7-15); Aspartate Amino Transferase* 39 U/L (12-35); Bilirubin Total* 0.7 mg/dL (0.1-1.5); Blood Urea Nitrogen* 15 mg/dL (7-30); Calcium* 8.6 mg/dL (8.4-10.6); Carbon Dioxide* 27 mmol/L (20-32); Creatinine* 0.8 mg/dL (0.5-1.5); Est. Creatinine Clearance* 69.35; Estimated Glomerular Filt Rate 97 ml/min; Glucose* 105 mg/dL (60-115); Total Protein* 6.3 g/dL (6.0-8.3)
[2023-03-26] MEDS: 0.9 % SODIUM CHLORIDE 1000 ml 1,000 ML IV (11:00)
[2023-03-26] MEDS: ONDANSETRON 2 MG/ML inj 8 MG IVP (11:54)
[2023-03-26] MEDS: dexAMETHasone 10 MG in 0.9 % SODIUM CHLORIDE 100 ml 100 ML 404 MG IVPB (11:55)
[2023-03-26] MEDS: diphenhydrAMINE 25 MG, FAMOTIDINE 20 MG in 0.9 % SODIUM CHLORIDE 100 ml 100 ML 420 MG IVPB (12:18)
[2023-03-26] MEDS: LEUPROLIDE ACETATE 22.5 MG (SQ) SYRINGE SUBCUT (13:00)
[2023-03-26] MEDS: SODIUM CHLORIDE 0.9 % (FLUSH) 10 ML SYRINGE IVF (13:51)
[2023-03-27 13:17] VITALS: BP 108/68; PULSE 63; RESP 16; TEMP 36.4; O2SAT 93
[2023-03-27] MEDS: PEGFILGRASTIM-JMDB 6 MG/0.6 ML SYRINGE SUBCUT (13:17)
[2023-04-02 10:15] VITALS: BP 68/37; PULSE 102; RESP 16; TEMP 35.8; O2SAT 92
[2023-04-02 10:17] VITALS: BP 87/54; PULSE 90; RESP 16
[2023-04-02] MEDS: 0.9 % SODIUM CHLORIDE 1000 ml 1,000 ML 800 ML IV (10:32)
[2023-04-02 12:15] VITALS: BP 103/68; PULSE 91; O2SAT 93
--- NOTE | 2023-04-02 13:58 | ONC.NURNOTE ---
Pt here for day 8 IVF and PICC drsg change. Pt hypotensive, states he was seen by primary care yesterday and he was hypotensive then as well. Pt instructed at clinic yesterday to take midodrine as prescribed 3x/day(pt has been taking 2x/day). Pt will continue to monitor BP at home and call [facility] if SBP less than 90 for possible IVF. After 1 L NS, BP improved. Pt and his spouse verbalized understanding of plan of care.
--- NOTE | 2023-04-08 08:57 | ONC.NURNOTE ---
Patient's spouse called office to state that patient has a PET scan ordered by Dr. Poe tomorrow. He usually takes lorazepam prior to this test, and does not currently have any available to him. She believes that he took 1mg the last time. She is requesting that prescription be sent to [facility] in [place]. Nursing to discuss with Dr. Poe over noon hour. Nursing to call patient back with instructions and whether they were called into pharmacy.
[2023-04-10] MEDS: 0.9 % SODIUM CHLORIDE 1000 ml 1,000 ML IV (14:22)
[2023-04-10] MEDS: SODIUM CHLORIDE 0.9 % (FLUSH) 10 ML SYRINGE IVF (14:22)
[2023-04-10 16:53] LABS: PSA Diagnostic* 1.08 ng/mL (0.10-4.00)
--- NOTE | 2023-04-11 12:41 | ONC.NURNOTE ---
Patient had PICC line removed yesterday and had a small amount of bleeding present on the bandage. Called patient to see how it was looking. He notes that it was removed overnight, but reapplied for the remainder of the 24 hours, but no bleeding was present. While on phone, patient requested PSA, this was given to patient.
== END 2023-06-23 23:59 | disposition home or self-care (01) ==
LOC: CCIC 13:30
PROVIDERS: Clinical Nurse Specialist; PCP Internal Medicine; Referring Provider Internal Medicine; Visit Provider Internal Medicine Hematology & Oncology
DX: C61 Malignant neoplasm of prostate (principal); C79.51 Secondary malignant neoplasm of bone; M85.80 Other specified disorders of bone density and structure, unspecified site; Z92.3 Personal history of irradiation
CPT/HCPCS: 36415; 36569; 36573; 36589; 36592; 80053; 84153; 85025; 96360; 96361; 96372; 96376; 96401; 96411; 96413; 99211; 99212; 99214; 99215; A4221; J1100; J1200; J2060; J2405; J2997; J7030; J7050; J9171; J9217; Q5108; S0028

== ENCOUNTER 2023-07-26 12:36 | Outpatient (CLI) | payer MEDICARE, BC, SELFPAY ==
--- NOTE | 2023-07-26 13:00 | MR_ITS ---
Patient: JHONY VASQUEZ SR Facility:?[facility] Patient ID:?[id number] Site Patient ID:?[id number]. Site :?[id number] Study:?MRI-Spine Cervical W/WO 20 CC DOTAREM-07/26/2023 5:12:02 PM Ordering Physician:COREY MC Final Report: Indication: Malignant neoplasm of prostate Technique: Multiplanar, multisequence MRI of the cervical spine obtained without and with contrast. Multiplanar, multisequence MRI of the thoracic spine obtained without and with contrast. Multiplanar, multisequence MRI of the lumbar spine obtained without and with contrast. A total of 20 mL of Dotarem IV contrast was administered. Comparison: No relevant comparison studies available for review at the time of this dictation. Findings: CERVICAL SPINE: Preserved cervical lordosis. Grade 1 retrolisthesis at C3-4. Scattered sclerotic bone lesions, suspicious for metastatic disease, including the C2 left superior articular pillar, C4 right articular pillar, and C5 left superior body. No evidence of pathologic fracture. Included posterior fossa structures are unremarkable. Visualized spinal cord is normal in course, caliber, and intrinsic signal. Nonspecific bilateral mastoid effusions. Retropharyngeal course of the left CCA/ICA. No suspicious findings in the paraspinal soft tissues. C2-C3: No significant foraminal or spinal canal stenosis. C3-C4: Shallow posterior disc bulge, mild uncovertebral arthropathy. No left, mild right neural foraminal narrowing. No spinal canal stenosis. C4-C5: Shallow posterior disc-osteophyte complex, mild uncovertebral and right facet arthropathy. No significant neural foraminal or spinal canal stenosis. C5-C6: Shallow central protrusion. Tortuous right vertebral artery, mildly encroaching upon the exiting right C6 nerve root. No osseous neural foraminal or spinal canal stenosis. C6-C7: Shallow posterior disc-osteophyte complex, left uncovertebral arthropathy. No right, moderate left neural foraminal stenosis. No spinal canal stenosis. C7-T1: No significant neural foraminal or spinal canal stenosis. THORACIC SPINE: Preserved thoracic kyphosis. Small sclerotic lesions at the T1 left posterior superior body and right superior articular pillar, T4 left pedicle, T5 central body, and T6 right transverse process. Markedly T1 hypointense signal and enhancement at the bilateral T5, T6, and T7 posterior ribs, suspicious for fractures. Multiple contiguous compression fractures, involving every thoracic vertebral body from T6-T12. Diffuse markedly T1 hypointense marrow signal and enhancement throughout the T6 and T7 bodies. Focal marrow signal abnormality and enhancement along the fracture lines at the remaining levels. Marrow edema at the bilateral T5 posterior ribs, and T6-9 vertebral bodies extending into the posterior elements/ribs, suggesting recent fracture. Presumed vertebral cement augmentation at T12. The spinal cord appears normal in course, caliber, and intrinsic signal. Minor cortical retropulsion from compression fractures, degenerative disc changes and facet arthropathy. Spinal canal appears grossly patent. Moderate left neural foraminal stenosis at T6-7. Mild neural foraminal narrowing elsewhere. No suspicious findings identified in the paraspinal soft tissues. LUMBAR SPINE: Preserved lumbar lordosis. Contiguous vertebral compression fractures from L1- L4. Presumed cement augmentation changes of L1 and L2. Suspect chronic left L5 spondylolysis. Sclerotic changes at the right anterior SI joint, presumed degenerative. No suspicious T1 hypointense, enhancing bone marrow lesions identified in the lumbar spine. Conus medullaris terminates at L2. No suspicious findings identified in the paraspinal soft tissues. Bilateral renal cysts. T12-L1: Minimal disc bulge. No significant neural foraminal or spinal canal stenosis. L1-L2: Mild diffuse disc bulge, mild facet arthropathy. No significant neural foraminal or spinal canal stenosis. L2-L3: Mild diffuse disc bulge, mild facet arthropathy. No significant neural foraminal or spinal canal stenosis. L3-L4: Mild diffuse disc bulge, mild facet arthropathy. No right, mild left neural foraminal narrowing. No spinal canal stenosis. L4-L5: Mild diffuse disc bulge, mild facet arthropathy. Mild bilateral neural foraminal narrowing. No spinal canal stenosis. L5-S1: No significant neural foramen or spinal canal stenosis. Impression: Cervical spine: 1. Sclerotic bone lesions at the C2 left superior articular pillar, C4 right articular pillar, and C5 left superior body, suspicious for metastatic disease. 2. No evidence of acute fracture. 3. At C5-6, tortuous right vertebral artery mildly encroaches upon the exiting right C6 nerve root. 4. At C6-7, moderate left neural foraminal stenosis. Thoracic spine: 1. Multiple sclerotic lesions, most notably involving T1, T4, T5, T6, and T7, suspicious for metastatic disease. 2. Contiguous compression fractures involving T6-T12, presumed pathologic at T6 and T7,, status post T12 cement augmentation. 3. Focal bony edema involving the bilateral posterior T5 ribs, and T6-T9 vertebral bodies extending into the posterior elements/ribs, suggesting these fractures are recent. 4. Spondylosis, contributing to moderate left T6-7 neural foraminal stenosis. Lumbar spine: 1. No suspicious T1 hypointense, enhancing bone lesions to suggest metastatic disease involving the lumbar spine. 2. Chronic-appearing compression deformities of L1-L4, status post L1 and L2 cement augmentation. 3. Mild spondylosis, without high-grade neural foraminal or spinal canal stenosis. Dictated by Aubree Zelaya MD @ 07/29/2023 10:25:34 AM ----- ADDENDUM ----- It should also be noted in the cervical impression that there are nonspecific bilateral mastoid effusions. Dictated by Aubree Zelaya MD @ Jul 29 2023 10:27AM Signed by:?Aubree Zelaya MD @07/29/2023 10:25:34 AM (Electronic Signature)
--- NOTE | 2023-07-26 14:00 | MR_ITS ---
Patient: JHONY VASQUEZ SR Facility:?[facility] R[facility] Patient ID:?[id number] Site Patient ID:?[id number]. Site :?[id number] Study:?MRI-Spine Lumbar W/WO 20 CC DOTAREM-07/26/2023 5:14:39 PM Ordering Physician:COREY MC Final Report: Indication: Malignant neoplasm of prostate Technique: Multiplanar, multisequence MRI of the cervical spine obtained without and with contrast. Multiplanar, multisequence MRI of the thoracic spine obtained without and with contrast. Multiplanar, multisequence MRI of the lumbar spine obtained without and with contrast. A total of 20 mL of Dotarem IV contrast was administered. Comparison: No relevant comparison studies available for review at the time of this dictation. Findings: CERVICAL SPINE: Preserved cervical lordosis. Grade 1 retrolisthesis at C3-4. Scattered sclerotic bone lesions, suspicious for metastatic disease, including the C2 left superior articular pillar, C4 right articular pillar, and C5 left superior body. No evidence of pathologic fracture. Included posterior fossa structures are unremarkable. Visualized spinal cord is normal in course, caliber, and intrinsic signal. Nonspecific bilateral mastoid effusions. Retropharyngeal course of the left CCA/ICA. No suspicious findings in the paraspinal soft tissues. C2-C3: No significant foraminal or spinal canal stenosis. C3-C4: Shallow posterior disc bulge, mild uncovertebral arthropathy. No left, mild right neural foraminal narrowing. No spinal canal stenosis. C4-C5: Shallow posterior disc-osteophyte complex, mild uncovertebral and right facet arthropathy. No significant neural foraminal or spinal canal stenosis. C5-C6: Shallow central protrusion. Tortuous right vertebral artery, mildly encroaching upon the exiting right C6 nerve root. No osseous neural foraminal or spinal canal stenosis. C6-C7: Shallow posterior disc-osteophyte complex, left uncovertebral arthropathy. No right, moderate left neural foraminal stenosis. No spinal canal stenosis. C7-T1: No significant neural foraminal or spinal canal stenosis. THORACIC SPINE: Preserved thoracic kyphosis. Small sclerotic lesions at the T1 left posterior superior body and right superior articular pillar, T4 left pedicle, T5 central body, and T6 right transverse process. Markedly T1 hypointense signal and enhancement at the bilateral T5, T6, and T7 posterior ribs, suspicious for fractures. Multiple contiguous compression fractures, involving every thoracic vertebral body from T6-T12. Diffuse markedly T1 hypointense marrow signal and enhancement throughout the T6 and T7 bodies. Focal marrow signal abnormality and enhancement along the fracture lines at the remaining levels. Marrow edema at the bilateral T5 posterior ribs, and T6-9 vertebral bodies extending into the posterior elements/ribs, suggesting recent fracture. Presumed vertebral cement augmentation at T12. The spinal cord appears normal in course, caliber, and intrinsic signal. Minor cortical retropulsion from compression fractures, degenerative disc changes and facet arthropathy. Spinal canal appears grossly patent. Moderate left neural foraminal stenosis at T6-7. Mild neural foraminal narrowing elsewhere. No suspicious findings identified in the paraspinal soft tissues. LUMBAR SPINE: Preserved lumbar lordosis. Contiguous vertebral compression fractures from L1- L4. Presumed cement augmentation changes of L1 and L2. Suspect chronic left L5 spondylolysis. Sclerotic changes at the right anterior SI joint, presumed degenerative. No suspicious T1 hypointense, enhancing bone marrow lesions identified in the lumbar spine. Conus medullaris terminates at L2. No suspicious findings identified in the paraspinal soft tissues. Bilateral renal cysts. T12-L1: Minimal disc bulge. No significant neural foraminal or spinal canal stenosis. L1-L2: Mild diffuse disc bulge, mild facet arthropathy. No significant neural foraminal or spinal canal stenosis. L2-L3: Mild diffuse disc bulge, mild facet arthropathy. No significant neural foraminal or spinal canal stenosis. L3-L4: Mild diffuse disc bulge, mild facet arthropathy. No right, mild left neural foraminal narrowing. No spinal canal stenosis. L4-L5: Mild diffuse disc bulge, mild facet arthropathy. Mild bilateral neural foraminal narrowing. No spinal canal stenosis. L5-S1: No significant neural foramen or spinal canal stenosis. Impression: Cervical spine: 1. Sclerotic bone lesions at the C2 left superior articular pillar, C4 right articular pillar, and C5 left superior body, suspicious for metastatic disease. 2. No evidence of acute fracture. 3. At C5-6, tortuous right vertebral artery mildly encroaches upon the exiting right C6 nerve root. 4. At C6-7, moderate left neural foraminal stenosis. 5. Nonspecific bilateral mastoid effusions. Thoracic spine: 1. Multiple sclerotic lesions, most notably involving T1, T4, T5, T6, and T7, suspicious for metastatic disease. 2. Contiguous compression fractures involving T6-T12, presumed pathologic at T6 and T7,, status post T12 cement augmentation. 3. Focal bony edema involving the bilateral posterior T5 ribs, and T6-T9 vertebral bodies extending into the posterior elements/ribs, suggesting these fractures are recent. 4. Spondylosis, contributing to moderate left T6-7 neural foraminal stenosis. Lumbar spine: 1. No suspicious T1 hypointense, enhancing bone lesions to suggest metastatic disease involving the lumbar spine. 2. Chronic-appearing compression deformities of L1-L4, status post L1 and L2 cement augmentation. 3. Mild spondylosis, without high-grade neural foraminal or spinal canal stenosis. Dictated by Aubree Zelaya MD @ 07/29/2023 10:26:54 AM Signed by:?Aubree Zelaya MD @07/29/2023 10:26:54 AM (Electronic Signature)
--- NOTE | 2023-07-26 15:00 | MR_ITS ---
Patient: JHONY VASQUEZ SR Facility:?[facility] Patient ID:?[id number] Site Patient ID:?[id number]. Site :?[id number] Study:?MRI-Spine Thoracic W/WO 20 CC DOTAREM-07/26/2023 5:13:27 PM Ordering Physician:COERY MC Final Report: Indication: Malignant neoplasm of prostate Technique: Multiplanar, multisequence MRI of the cervical spine obtained without and with contrast. Multiplanar, multisequence MRI of the thoracic spine obtained without and with contrast. Multiplanar, multisequence MRI of the lumbar spine obtained without and with contrast. A total of 20 mL of Dotarem IV contrast was administered. Comparison: No relevant comparison studies available for review at the time of this dictation. Findings: CERVICAL SPINE: Preserved cervical lordosis. Grade 1 retrolisthesis at C3-4. Scattered sclerotic bone lesions, suspicious for metastatic disease, including the C2 left superior articular pillar, C4 right articular pillar, and C5 left superior body. No evidence of pathologic fracture. Included posterior fossa structures are unremarkable. Visualized spinal cord is normal in course, caliber, and intrinsic signal. Nonspecific bilateral mastoid effusions. Retropharyngeal course of the left CCA/ICA. No suspicious findings in the paraspinal soft tissues. C2-C3: No significant foraminal or spinal canal stenosis. C3-C4: Shallow posterior disc bulge, mild uncovertebral arthropathy. No left, mild right neural foraminal narrowing. No spinal canal stenosis. C4-C5: Shallow posterior disc-osteophyte complex, mild uncovertebral and right facet arthropathy. No significant neural foraminal or spinal canal stenosis. C5-C6: Shallow central protrusion. Tortuous right vertebral artery, mildly encroaching upon the exiting right C6 nerve root. No osseous neural foraminal or spinal canal stenosis. C6-C7: Shallow posterior disc-osteophyte complex, left uncovertebral arthropathy. No right, moderate left neural foraminal stenosis. No spinal canal stenosis. C7-T1: No significant neural foraminal or spinal canal stenosis. THORACIC SPINE: Preserved thoracic kyphosis. Small sclerotic lesions at the T1 left posterior superior body and right superior articular pillar, T4 left pedicle, T5 central body, and T6 right transverse process. Markedly T1 hypointense signal and enhancement at the bilateral T5, T6, and T7 posterior ribs, suspicious for fractures. Multiple contiguous compression fractures, involving every thoracic vertebral body from T6-T12. Diffuse markedly T1 hypointense marrow signal and enhancement throughout the T6 and T7 bodies. Focal marrow signal abnormality and enhancement along the fracture lines at the remaining levels. Marrow edema at the bilateral T5 posterior ribs, and T6-9 vertebral bodies extending into the posterior elements/ribs, suggesting recent fracture. Presumed vertebral cement augmentation at T12. The spinal cord appears normal in course, caliber, and intrinsic signal. Minor cortical retropulsion from compression fractures, degenerative disc changes and facet arthropathy. Spinal canal appears grossly patent. Moderate left neural foraminal stenosis at T6-7. Mild neural foraminal narrowing elsewhere. No suspicious findings identified in the paraspinal soft tissues. LUMBAR SPINE: Preserved lumbar lordosis. Contiguous vertebral compression fractures from L1- L4. Presumed cement augmentation changes of L1 and L2. Suspect chronic left L5 spondylolysis. Sclerotic changes at the right anterior SI joint, presumed degenerative. No suspicious T1 hypointense, enhancing bone marrow lesions identified in the lumbar spine. Conus medullaris terminates at L2. No suspicious findings identified in the paraspinal soft tissues. Bilateral renal cysts. T12-L1: Minimal disc bulge. No significant neural foraminal or spinal canal stenosis. L1-L2: Mild diffuse disc bulge, mild facet arthropathy. No significant neural foraminal or spinal canal stenosis. L2-L3: Mild diffuse disc bulge, mild facet arthropathy. No significant neural foraminal or spinal canal stenosis. L3-L4: Mild diffuse disc bulge, mild facet arthropathy. No right, mild left neural foraminal narrowing. No spinal canal stenosis. L4-L5: Mild diffuse disc bulge, mild facet arthropathy. Mild bilateral neural foraminal narrowing. No spinal canal stenosis. L5-S1: No significant neural foramen or spinal canal stenosis. Impression: Cervical spine: 1. Sclerotic bone lesions at the C2 left superior articular pillar, C4 right articular pillar, and C5 left superior body, suspicious for metastatic disease. 2. No evidence of acute fracture. 3. At C5-6, tortuous right vertebral artery mildly encroaches upon the exiting right C6 nerve root. 4. At C6-7, moderate left neural foraminal stenosis. 5. Nonspecific bilateral mastoid effusions. Thoracic spine: 1. Multiple sclerotic lesions, most notably involving T1, T4, T5, T6, and T7, suspicious for metastatic disease. 2. Contiguous compression fractures involving T6-T12, presumed pathologic at T6 and T7,, status post T12 cement augmentation. 3. Focal bony edema involving the bilateral posterior T5 ribs, and T6-T9 vertebral bodies extending into the posterior elements/ribs, suggesting these fractures are recent. 4. Spondylosis, contributing to moderate left T6-7 neural foraminal stenosis. Lumbar spine: 1. No suspicious T1 hypointense, enhancing bone lesions to suggest metastatic disease involving the lumbar spine. 2. Chronic-appearing compression deformities of L1-L4, status post L1 and L2 cement augmentation. 3. Mild spondylosis, without high-grade neural foraminal or spinal canal stenosis. Dictated by Aubree Zelaya MD @ 07/29/2023 10:26:21 AM Signed by:?Aubree Zelaya MD @07/29/2023 10:26:21 AM (Electronic Signature)
== END 2023-07-26 12:37 | disposition home or self-care (01) ==
PROVIDERS: PCP Internal Medicine; Visit Provider Internal Medicine Hematology & Oncology
DX: C61 Malignant neoplasm of prostate (principal); M89.9 Disorder of bone, unspecified; M48.02 Spinal stenosis, cervical region; M48.56XA Collapsed vertebra, not elsewhere classified, lumbar region, initial encounter for fracture; M47.894 Other spondylosis, thoracic region; M47.896 Other spondylosis, lumbar region
CPT/HCPCS: 72156; 72157; 72158; A9575

== ENCOUNTER 2023-12-17 10:30 | Outpatient (RCR) | payer MEDICARE, BC, SELFPAY ==
--- NOTE | 2023-07-16 12:42 | ONC.NURNOTE ---
Patient called yesterday to check on eligard injection scheduling. This was scheduled, as his dose was missed in June. Oncologist notified, she notes that she has been talking with Radiation oncology and palliative care regarding this patient. He should be seen this month. There was a cancellation for tomorrow that patient was added onto.
[2023-07-17 09:47] LABS: Basophils Percent Auto 0.2 % (0.0-3.0); Eosinophils Percent Auto 3.4 % (0.0-7.0); Hematocrit 43.7 % (37.0-53.0); Hemoglobin* 14.1 gm/dL (13.5-17.5); Immature Granulocytes Pct Auto 0.2 %; Lymphocytes Percent Auto 35.3 % (20-44); Mean Corpuscular HGB Conc 32 gm/dL (32-36); Mean Corpuscular Hemoglobin 34 pg (26-34); Mean Corpuscular Volume 105 fL (80-100); Monocytes Percent Auto 11.2 % (0.0-11.0); Neutrophils Percent Auto 49.7 % (42.0-72.0); Platelet Count* 146 K/uL (140-440); RDW Coefficient of Variation % 13.6 % (11.5-15.5); Red Blood Count 4.16 m/uL (4.30-5.90); White Blood Count* 4.39 K/uL (4.50-11.00)
[2023-07-17 09:49] LABS: Slide Review Reflex No
[2023-07-17 09:58] LABS: Albumin* 4.4 g/dL (3.3-5.0); Chloride* 106 mmol/L (96-114); Potassium* 3.5 mmol/L (3.6-5.1); Sodium* 143 mmol/L (135-149)
[2023-07-17 10:00] LABS: Creatinine* 0.9 mg/dL (0.5-1.5); Estimated Glomerular Filt Rate 94 ml/min
[2023-07-17 10:01] LABS: Alanine Aminotransferase* 20 U/L (4-50); Alkaline Phosphatase* 64 U/L (40-150); Anion Gap 10 mEq/L (7-15); Aspartate Amino Transferase* 34 U/L (12-35); Bilirubin Total* 0.8 mg/dL (0.1-1.5); Blood Urea Nitrogen* 20 mg/dL (7-30); Carbon Dioxide* 27 mmol/L (20-32); Glucose* 90 mg/dL (60-115); Total Protein* 7.8 g/dL (6.0-8.3)
[2023-07-17 10:02] LABS: Calcium* 9.5 mg/dL (8.4-10.6)
[2023-07-17 10:32] LABS: PSA Diagnostic* 4.19 ng/mL (0.10-4.00)
[2023-07-17] MEDS: LEUPROLIDE ACETATE 22.5 MG (SQ) SYRINGE SUBCUT (11:14)
--- NOTE | 2023-07-31 10:34 | ONC.NURNOTE ---
Patient called office wondering about results from MRI done last week. No follow up appointment scheduled. Per note, Dr. Poe states: I will go ahead and place for MRI CT L-spine, over the next 1-2 weeks, if pain is secondary to compression fracture, and not due to cancer, it can be managed as warranted (kyphoplasty.) MRI results printed to Dr. Poe, and nursing or oncologist to call patient with next plan.
[2023-10-22 11:14] VITALS: BP 116/80; PULSE 98; RESP 18; TEMP 36.1; O2SAT 93
[2023-10-22] MEDS: LEUPROLIDE ACETATE 22.5 MG (SQ) SYRINGE SUBCUT (11:19)
[2023-11-26 13:14] LABS: Basophils Absolute Auto 0.01 K/uL (0.00-0.30); Basophils Percent Auto 0.2 % (0.0-3.0); Eosinophils Absolute Auto 0.16 K/uL (0.00-0.50); Eosinophils Percent Auto 3.3 % (0.0-7.0); Hematocrit 42.1 % (37.0-53.0); Hemoglobin* 13.7 gm/dL (13.5-17.5); Lymphocytes Absolute Auto 1.69 K/uL (0.90-2.90); Mean Corpuscular HGB Conc 33 gm/dL (32-36); Mean Corpuscular Hemoglobin 35 pg (26-34); Mean Corpuscular Volume 107 fL (80-100); Monocytes Percent Auto 10.8 % (0.0-11.0); Neutrophils Absolute Auto 2.45 K/uL (1.7-7.0); Neutrophils Percent Auto 50.7 % (42.0-72.0); Platelet Count* 129 K/uL (140-440); RDW Coefficient of Variation % 13.5 % (11.5-15.5); Red Blood Count 3.94 m/uL (4.30-5.90); White Blood Count* 4.83 K/uL (4.50-11.00)
[2023-11-26 13:27] LABS: Albumin* 4.2 g/dL (3.3-5.0); Chloride* 107 mmol/L (96-114); Potassium* 3.6 mmol/L (3.6-5.1); Sodium* 142 mmol/L (135-149)
[2023-11-26 13:30] LABS: Alanine Aminotransferase* 17 U/L (4-50); Alkaline Phosphatase* 58 U/L (40-150); Anion Gap 8 mEq/L (7-15); Aspartate Amino Transferase* 28 U/L (12-35); Bilirubin Total* 0.7 mg/dL (0.1-1.5); Blood Urea Nitrogen* 18 mg/dL (7-30); Carbon Dioxide* 27 mmol/L (20-32); Creatinine* 0.8 mg/dL (0.5-1.5); Est. Creatinine Clearance* 69.35; Estimated Glomerular Filt Rate 97 ml/min; Glucose* 126 mg/dL (60-115); Total Protein* 7.1 g/dL (6.0-8.3)
[2023-11-26 13:31] LABS: Calcium* 9.2 mg/dL (8.4-10.6)
[2023-11-26 13:32] LABS: Slide Review Reflex No
--- NOTE | 2023-11-27 10:34 | ONC.NURNOTE ---
Received a call from patients , Barbara, stating that patient isn't feeling well and would not be able to make the appointment with Dr. Poe today. After clarification, patients stated he is tired and stressed and doesn't want to hear what the results that the MD has for today. Offered a phone visit but patient declined. They are planning to visit their son next week and would like to have appointment moved to 12/10/23. This was changed and MD was notified.
--- NOTE | 2023-11-29 13:11 | ONC.NURNOTE ---
Pt's appt with Dr. Poe changed to 12/17/23 due to pt having PET scan done on 12/10/23 and appt with Radiation on 12/11/23. Radiation Oncology requested appt change, pt notified and verbalized understanding of plan of care.
== END 2024-01-13 23:59 | disposition home or self-care (01) ==
LOC: CCIC 10:30
PROVIDERS: PCP Internal Medicine; Referring Provider Internal Medicine; Visit Provider Internal Medicine Hematology & Oncology
DX: C61 Malignant neoplasm of prostate (principal); C79.51 Secondary malignant neoplasm of bone; M81.0 Age-related osteoporosis without current pathological fracture
CPT/HCPCS: 36415; 80053; 84153; 85025; 96401; 99214; 99215; G0463; J9217

== ENCOUNTER 2024-05-27 12:00 | Outpatient (RCR) | payer MEDICARE, BC, SELFPAY ==
--- NOTE | 2024-01-17 13:23 | URNOTE ---
Request received for authorization for Lilib[facility] ([id number]). Prior authorization is not required as services are based on medical necessity and follow Medicare guidelines.
[2024-01-22 09:35] LABS: Eosinophils Percent Auto 2.9 % (0.0-7.0); Hematocrit 42.6 % (37.0-53.0); Hemoglobin* 14.1 gm/dL (13.5-17.5); Immature Granulocytes Pct Auto 0.3 %; Lymphocytes Percent Auto 27.1 % (20-44); Mean Corpuscular HGB Conc 33 gm/dL (32-36); Mean Corpuscular Hemoglobin 35 pg (26-34); Mean Corpuscular Volume 105 fL (80-100); Monocytes Percent Auto 12.5 % (0.0-11.0); Neutrophils Percent Auto 57.2 % (42.0-72.0); Platelet Count* 100 K/uL (140-440); RDW Coefficient of Variation % 13.7 % (11.5-15.5); Red Blood Count 4.04 m/uL (4.30-5.90); White Blood Count* 3.77 K/uL (4.50-11.00)
[2024-01-22 09:37] LABS: Slide Review Reflex No
[2024-01-22 09:42] LABS: Albumin* 4.3 g/dL (3.3-5.0); Chloride* 107 mmol/L (96-114)
[2024-01-22 09:43] LABS: Potassium* 3.7 mmol/L (3.6-5.1); Sodium* 141 mmol/L (135-149)
[2024-01-22 09:45] LABS: Anion Gap 5 mEq/L (7-15); Aspartate Amino Transferase* 47 U/L (12-35); Bilirubin Total* 0.8 mg/dL (0.1-1.5); Carbon Dioxide* 29 mmol/L (20-32); Creatinine* 0.8 mg/dL (0.5-1.5); Estimated Glomerular Filt Rate 96 ml/min
[2024-01-22 09:46] LABS: Alanine Aminotransferase* 40 U/L (4-50); Alkaline Phosphatase* 63 U/L (40-150); Blood Urea Nitrogen* 17 mg/dL (7-30); Calcium* 9.3 mg/dL (8.4-10.6); Glucose* 106 mg/dL (60-115); Total Protein* 7.1 g/dL (6.0-8.3)
[2024-01-22] MEDS: LEUPROLIDE ACETATE 22.5 MG (SQ) SYRINGE SUBCUT (11:32)
[2024-02-19 12:19] LABS: Basophils Percent Auto 0.2 % (0.0-3.0); Eosinophils Percent Auto 2.1 % (0.0-7.0); Hemoglobin* 14.1 gm/dL (13.5-17.5); Lymphocytes Percent Auto 21.2 % (20-44); Mean Corpuscular HGB Conc 33 gm/dL (32-36); Mean Corpuscular Hemoglobin 35 pg (26-34); Mean Corpuscular Volume 107 fL (80-100); Monocytes Percent Auto 10.4 % (0.0-11.0); Neutrophils Percent Auto 66.1 % (42.0-72.0); Platelet Count* 112 K/uL (140-440); RDW Coefficient of Variation % 14.1 % (11.5-15.5); Red Blood Count 4.01 m/uL (4.30-5.90); White Blood Count* 4.33 K/uL (4.50-11.00)
[2024-02-19 12:22] LABS: Slide Review Reflex No
[2024-02-19 12:36] LABS: Albumin* 4.2 g/dL (3.3-5.0); Chloride* 107 mmol/L (96-114); Sodium* 140 mmol/L (135-149)
[2024-02-19 12:37] LABS: Potassium* 3.5 mmol/L (3.6-5.1)
[2024-02-19 12:39] LABS: Alkaline Phosphatase* 64 U/L (40-150); Anion Gap 4 mEq/L (7-15); Aspartate Amino Transferase* 30 U/L (12-35); Bilirubin Total* 0.8 mg/dL (0.1-1.5); Blood Urea Nitrogen* 17 mg/dL (7-30); Carbon Dioxide* 29 mmol/L (20-32); Creatinine* 0.8 mg/dL (0.5-1.5); Estimated Glomerular Filt Rate 96 ml/min; Total Protein* 7.2 g/dL (6.0-8.3)
[2024-02-19 12:40] LABS: Alanine Aminotransferase* 15 U/L (4-50); Calcium* 9.4 mg/dL (8.4-10.6); Glucose* 143 mg/dL (60-115)
[2024-05-27 12:17] LABS: Basophils Absolute Auto 0.01 K/uL (0.00-0.30); Basophils Percent Auto 0.2 % (0.0-3.0); Eosinophils Absolute Auto 0.12 K/uL (0.00-0.50); Eosinophils Percent Auto 2.6 % (0.0-7.0); Hematocrit 43.7 % (37.0-53.0); Hemoglobin* 14.2 gm/dL (13.5-17.5); Lymphocytes Percent Auto 30.8 % (20-44); Mean Corpuscular HGB Conc 33 gm/dL (32-36); Mean Corpuscular Hemoglobin 35 pg (26-34); Mean Corpuscular Volume 109 fL (80-100); Monocytes Percent Auto 10.8 % (0.0-11.0); Neutrophils Absolute Auto 2.52 K/uL (1.7-7.0); Neutrophils Percent Auto 55.6 % (42.0-72.0); Platelet Count* 112 K/uL (140-440); RDW Coefficient of Variation % 13.3 % (11.5-15.5); Red Blood Count 4.02 m/uL (4.30-5.90); White Blood Count* 4.54 K/uL (4.50-11.00)
[2024-05-27 12:19] LABS: Slide Review Reflex No
[2024-05-27 12:35] LABS: Albumin* 4.1 g/dL (3.3-5.0); Chloride* 108 mmol/L (96-114)
[2024-05-27 12:36] LABS: Potassium* 3.6 mmol/L (3.6-5.1); Sodium* 142 mmol/L (135-149)
[2024-05-27 12:38] LABS: Anion Gap 6 mEq/L (7-15); Aspartate Amino Transferase* 29 U/L (12-35); Bilirubin Total* 0.6 mg/dL (0.1-1.5); Carbon Dioxide* 28 mmol/L (20-32); Creatinine* 0.9 mg/dL (0.5-1.5); Estimated Glomerular Filt Rate 93 ml/min; Total Protein* 6.9 g/dL (6.0-8.3)
[2024-05-27 12:39] LABS: Alanine Aminotransferase* 20 U/L (4-50); Alkaline Phosphatase* 57 U/L (40-150); Blood Urea Nitrogen* 19 mg/dL (7-30); Calcium* 9.1 mg/dL (8.4-10.6); Glucose* 113 mg/dL (60-115)
== END 2024-07-20 23:59 | disposition home or self-care (01) ==
LOC: CCIC 12:00
PROVIDERS: PCP Internal Medicine; Referring Provider Internal Medicine; Visit Provider Internal Medicine Hematology & Oncology
DX: C61 Malignant neoplasm of prostate (principal); C79.51 Secondary malignant neoplasm of bone; M81.0 Age-related osteoporosis without current pathological fracture
CPT/HCPCS: 36415; 80053; 84153; 85025; 96401; 99213; 99214; 99215; G0463; J9217